=== PATIENT | male | born 1950 | race Caucasian/White ===

== ENCOUNTER 2018-11-21 10:43 | Inpatient (IN) | payer MEDICARE, OTHER | END 2018-11-25 18:20 | disposition home or self-care (01) | LOC: EAST 11-24 22:06 → ICU WEST 11-22 01:39 → ER 10:43 → TELE 10:44 → TELE-WESTW 21:21 | PROC: 30233N1 Transfusion of Nonautologous Red Blood Cells into Peripheral Vein, Percutaneous Approach (ICD-10-PCS; principal; ~2018-11-21) | PROC: 30233K1 Transfusion of Nonautologous Frozen Plasma into Peripheral Vein, Percutaneous Approach (ICD-10-PCS; ~2018-11-21) | DX: K92.1 Melena (principal); D65 Disseminated intravascular coagulation [defibrination syndrome]; C15.9 Malignant neoplasm of esophagus, unspecified; E44.0 Moderate protein-calorie malnutrition; D68.9 Coagulation defect, unspecified; Z95.2 Presence of prosthetic heart valve; I48.91 Unspecified atrial fibrillation; Z93.4 Other artificial openings of gastrointestinal tract status; D64.9 Anemia, unspecified; E86.0 Dehydration; D69.6 Thrombocytopenia, unspecified; I48.2 Chronic atrial fibrillation; I95.9 Hypotension, unspecified; C61 Malignant neoplasm of prostate; K44.9 Diaphragmatic hernia without obstruction or gangrene; K80.20 Calculus of gallbladder without cholecystitis without obstruction; N28.1 Cyst of kidney, acquired; N40.0 Benign prostatic hyperplasia without lower urinary tract symptoms ==